=== PATIENT | male | born 1970 | race Caucasian/White ===

== ENCOUNTER 2018-03-25 23:37 | Observation (INO) | payer MEDICARE ==
[2018-03-26 00:05] LABS: #Basophils 0.1 thou/uL (0.0-0.2); #Eosinphils 0.2 thou/uL (0.0-0.7); #Lymphocytes 2.4 thou/uL (1.20-3.40); #Monocytes 0.5 thou/uL (0.11-0.59); #Neutrophils 4.9 thou/uL (1.40-6.50); %Basophils 0.7 % (0.0-1.0); %Eosinophils 2.9 % (0.0-10.0); %Lymphocytes 29.4 % (21.0-51.0); %Monocytes 6.6 % (0.0-10.0); %Neutrophils 60.5 % (42.0-75.0); Hemoglobin 14.2 g/dL (14.0-18.0); Mean Corpuscular Hemoglobin 28.3 pg (27.0-31.0); Mean Platelet Volume 7.2 fL (7.4-10.4); Platelet Count 286 thou/uL (130-400); RBC Distribution Width 12.6 % (11.5-14.5); Red Blood Cell (RBC) Count 5.03 mill/uL (4.70-6.10)
[2018-03-26 00:27] LABS: ALT (SGPT) 45 U/L (8-55); AST (SGOT) 24 U/L (5-34); Albumin 4.2 g/dL (3.5-5.0); Alkaline Phosphatase 100 U/L (40-150); Anion Gap 15 mmol/L (10-20); BUN (Urea Nitrogen) 18 mg/dL (8.9-20.6); Bilirubin, Total 0.4 mg/dL (0.2-1.2); Calc. Creatinine Clearance 0 mL/min (70-130); Calcium 9.8 mg/dL (7.8-10.44); Carbon Dioxide 26 mmol/L (22-29); Chloride 95 mmol/L (98-107); Estimated GFR-MDRD 56; Globulin 3.8 g/dL (2.4-3.5); Glucose 390 mg/dL (70-105); Potassium 3.9 mmol/L (3.5-5.1); Sodium 132 mmol/L (136-145)
[2018-03-26 00:31] LABS: CKMB 0.7 ng/mL (0-6.6); Troponin I Less than 0.010 ng/mL (< 0.028)
[2018-03-26 00:41] LABS: Magnesium 2.1 mg/dL (1.6-2.6)
[2018-03-26 00:57] LABS: INR-International Normal Ratio 0.9; Prothrombin Time 11.9 SEC (12.0-14.7)
[2018-03-26] MEDS ORDERED: Morphine 4 MG/ML VIAL ONE ×2 (01:34→03:03)
[2018-03-26 02:45] LABS: Bilirubin Negative (Negative); Blood, Urine Negative (Negative); Clarity CLEAR (Clear); Glucose, Urine (Dipstick) >=1000 mg/dL (Negative); Leukocyte Negative (Negative); Nitrite Negative (Negative); Protein, Urine (Dipstick) Negative (Neg-Trace); Specific Gravity, Urine 1.039 (1.002-1.036); Urobilinogen 0.2 mg/dL (0.2-1.0); pH, Urine 5.5 (5.0-9.0)
[2018-03-26 03:55] LABS: Troponin I Less than 0.010 ng/mL (< 0.028)
[2018-03-26] MEDS ORDERED: hydrALAZINE 20 MG/ML VIAL SLOW IVP PRN (05:06)
[2018-03-26 05:08] VITALS: BMI 45.8
[2018-03-26] MEDS ORDERED: Nitroglycerin 0.4 MG TAB (25 Tab Bottle) ONE (05:42)
[2018-03-26 06:41] LABS: Troponin I Less than 0.010 ng/mL (< 0.028)
--- NOTE | 2018-03-26 08:49 | RAD ---
AP VIEW OF THE CHEST: INDICATION: Shortness of breath and chest pain. IMPRESSION: No acute abnormality. Comments: Portions of the right apex are excluded. Heart size is within normal limits. No confluent airspace opacities are apparent. No pleural effusion is noted. No acute osseous abnormality is evident. POS: [facility]
[2018-03-26] MEDS ORDERED: Dextrose 5% in Water 1,000 ML IV PRN (08:54)
[2018-03-26] MEDS ORDERED: Dextrose 50% Abboject 50 ML SYRINGE SLOW IVP PRN (08:54)
[2018-03-26] MEDS ORDERED: Alogliptin 25 MG TAB PO SCH (09:00)
[2018-03-26] MEDS ORDERED: Aspirin 325 MG TAB PO SCH (09:00)
[2018-03-26 09:31] LABS: Hemoglobin A1c 8.6 % (4.0-6.0)
--- NOTE | 2018-03-26 10:23 | HP ---
DATE OF ADMISSION: 03/26/2018 CHIEF COMPLAINT: Chest pain. HISTORY OF PRESENT ILLNESS: The patient is a 47-year-old male who is admitted to the [facility] with 4-day history of intermittent chest pain located in the retrosternal area radiating to the b ack and left shoulder associated with some shortness of breath, no nausea. He vomited twice. He had 2 watery bowel movements since yesterday. The pain started when he was walking his dog and it was v jovanna hot outside, so he came into the house and rested and the pain got better. He never had this kin d of problem before. The sharp pain was associated with some tightness in the chest. He got concern ed because of his family history of cardiovascular disease at early deaths and he came to the emergen cy room for further evaluation. He takes blood pressure medications and he is not happy with his [facility] physician, Dr. Sandhu who is giving him more medications for the blood pressure and the blood pre ssure each time he checks is elevated despite of taking all those medications. In the emergency room , decision was made about further evaluation of his chest pain and admission was recommended to the ospitalist physician. PAST MEDICAL HISTORY: Positive for: 1. Hypertension. 2. Hernia. PAST SURGICAL HISTORY: None. SOCIAL HISTORY: He denies any alcohol use, cigarette smoking and use any illicit drugs. MEDICATIONS: Chlorthalidone 25 mg once a day, isosorbide mononitrate 30 mg once a day, carvedilol 6. 25 mg once a day, losartan/hydrochlorothiazide 100/25 mg tablets 1 a day, tizanidine 4 mg tablets 1 a day. FAMILY HISTORY: His father at the age of 49 of [place] and mother at the age of 65 of cerebrovascula r accident. ALLERGIES: None. REVIEW OF SYSTEMS: Constitutional: Negative for fever and chills. Eyes: Negative for eye pain and eye discharge. 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 Cardiovascular: Positive for chest pain. Negative for palpitations. Respiratory: Positive for shortness of breath. Negativ e for cough. Gastrointestinal: Positive for some nausea, vomiting, and diarrhea. Genitourinary: N egative for hematuria and dysuria. Musculoskeletal: Positive for back pain, which is chronic. Skin : Negative for rash, erythema or cellulitis. Neurologic: Positive for headache. Negative for dizz iness. Hemolymphatic: Negative for easy bruising and clotting abnormalities. Psychiatric: Negativ e for homicidal or suicidal ideations. PHYSICAL EXAMINATION: GENERAL: The communication with him is done through the clinical application specialist since he is mute and deaf. He i s resting comfortably in bed. He is obese. His BMI is 45. Weight is 356. His height is 6 feet 2 i nches. VITAL SIGNS: Blood pressure is 167/93, temperature is 97.5, pulse is 71, respiratory rate is 16, O2 saturation is 98 on room air. HEENT: His head is atraumatic, normocephalic. Eyes are PERRLA. Sclerae nonicteric. Oral mucosa is moist. Conjunctivae pinkish. NECK: Supple, no lymphadenopathy, is obese. LUNGS: Clear. HEART: S1, S2, somewhat distant. Not accurate. No S3, no S4, no any murmur. ABDOMEN: Soft, mildly tender in the left flank area. No guarding, no masses. EXTREMITIES: No clubbing, cyanosis or edema. He has quite severe pain on palpation of his lumbar sp ine and the left hip area. The range of motion in the left hip is within normal limits. Pulses is s omewhat diminished on both tibialis posterior and dorsalis pedis arteries, similar bilaterally. NEUROLOGICAL: He follows my commands. He moves his all 4 extremities. There is not any motor or se nsory deficits. Cranial nerves are intact. LABORATORY DATA: Showed normal CBC, INR of 2.0, PT 11.9. Sodium of 132, potassium 3.9, chloride 95, CO2 26, BUN 18, creatinine 1.37, glucose 390. Rest of chemistry within normal limits. Urinalysis s howed specific gravity of 1.039 and more than 1000 of glucose. IMAGES: CTA of the chest, no dissection, nondiagnostic evaluation for pulmonary embolism due to mini mal opacification of the pulmonary arteries. CT of the abdomen, no acute findings. EKG showed maggie l sinus rhythm at 90 beats per minute, no ischemic changes, possible left atrial enlargement. IMPRESSION: 1. Chest pain, rule out acute coronary syndrome. 2. Nausea, vomiting, abdominal pain, and diarrhea, rule out acute gastroenteritis. 3. Uncontrolled diabetes mellitus. 4. Uncontrolled hypertension. 5. Morbid obesity. PLAN: Admission for observation. Condition is fair. Activity: Bed rest and bathroom privileges. IV normal saline 100 mL per hour. Stop his chlorthalidone, which could be contributing to his renal insufficiency, I think this is prerenal mostly since he is on 2 different diuretics until his blood p ressure is controlled. We will obtain a Cardiolite stress test without any treadmill since he has ba ck pain, which is chronic. We will start him on sitagliptin 100 mg once a day for his diabetes, due to sliding scale with Humalog, mild for now. We will switch his diet to 1800 calories ADA and he janelle l continue on the rest of his home medications and I am going to add calcium channel jordan, amlodip ine 5 mg once a day since his blood pressure is still not regulated. I will use p.r.n. nitro as need ed and tramadol 100 mg q.4 hours p.r.n. for the back pain. He will receive 5000 units of heparin sub cutaneously every 8 hours for deep venous thrombosis prophylaxis and he will have sequential compress ion devices for deep venous thrombosis prophylaxis too.
[2018-03-26] MEDS: traMADol HCl 50 MG TAB PO PRN (10:35)
[2018-03-26] MEDS: tiZANidine HCl 4 MG TAB PO SCH (10:37)
[2018-03-26] MEDS: Losartan/Hydrochlorothiazide 100 mg/25 mg Tablet PO SCH (10:37)
[2018-03-26] MEDS: Amlodipine 5 MG TAB PO SCH (10:37)
[2018-03-26] MEDS: Carvedilol 6.25 MG TAB PO SCH (10:41)
[2018-03-26] MEDS: Heparin 5,000 UNITS/ML VIAL SC SCH ×3 (10:42→20:59)
[2018-03-26] MEDS: Sodium Chloride 0.9% 1,000 ML IV SCH (10:44)
[2018-03-26] MEDS ORDERED: ISOVUE-370 76%-LOCM 1 ML ONE (14:54)
--- NOTE | 2018-03-26 16:10 | CT ---
PRELIMINARY REPORT/[facility]/EMERGENTY AFTER-HOURS PROCEDURE CT Angiography Chest With Intravenous Contrast CLINICAL HISTORY: 47 years old, male; Pain; Chest pain; Abdominal pain; Generalized; Patient HX: History provided by nona espitia, history obtained with the assistance of a monotype operator, sign language, m47 presents to ed via tr anslator service C/O SOB and cp that has been intermittent the past x4 days, and was worsened today while walking his dog. Pt describes the cp as tightening sensation that radiated to his l. Shou lder and back. Pmhx of hypertension and takes 6 different meds for it. Pt also reports having a [place], a bdominal pain, and vomiting. Denies pain with bm. Fm hx of stroke in mother, and heart attack in formerly [facility], [facility], both at a young age. TECHNIQUE: Axial computed tomographic angiography images of the chest with intravenous contrast using pulmonary embolism protocol. MIP reconstructed images were created and reviewed. Coronal and sagittal reformatted images were created and reviewed. COMPARISON: No relevant prior studies available. FINDINGS: Pulmonary arteries: Nondiagnostic evaluation for pulmonary embolism due to minimal opacification of t he pulmonary arteries. Aorta: Unremarkable. Lungs: No consolidation. Pleural space: No significant effusion. No pneumothorax. Heart: Unremarkable. Bones/joints: Mild multilevel degenerative changes. No acute fracture. No dislocation. Soft tissues: Unremarkable. Lymph nodes: No enlarged lymph nodes. IMPRESSION: 1. No aortic dissection. 2. Nondiagnostic evaluation for pulmonary embolism due to minimal opacification of the pulmonary arteries. CT Angiography Abdomen With Intravenous Contrast TECHNIQUE: Axial computed tomographic angiography images of the abdomen with intravenous contrast. MIP reconstructed images were created and reviewed. Coronal and sagittal reformatted images were created and reviewed. COMPARISON: No relevant prior studies available. FINDINGS: Aorta: No acute findings. No abdominal aortic aneurysm. No dissection. Celiac trunk and mesenteric arteries: No acute findings. No occlusion or significant stenosis. Renal arteries: No acute findings. No occlusion or significant stenosis. Lung bases: Unremarkable. No mass. No consolidation. Liver: Unremarkable. No mass. Gallbladder and bile ducts: Unremarkable. No calcified stones. No ductal dilation. Pancreas: Unremarkable. No ductal dilation. No mass. Spleen: Unremarkable. No splenomegaly. Adrenals: Unremarkable. No mass. Kidneys and ureters: Unremarkable. No hydronephrosis. No solid mass. Stomach and bowel: Unremarkable. No obstruction. Intraperitoneal space: Unremarkable. No significant fluid collection. No free air. Bones/joints: No acute fracture. No dislocation. Soft tissues: Unremarkable. No mass. Lymph nodes: Unremarkable. No enlarged lymph nodes. IMPRESSION: No acute findings. Thank you for allowing us to participate in the care of your patient. Dictated and Authenticated by: Bran Villalta MD 03/26/2018 2:26 AM Central Time ([place] & [place]) FINAL REPORT I agree with the preliminary report provided. No acute aortic dissection, occlusion, or aneurysmal f ormation is evident. There is fatty infiltration of the liver. The spleen is enlarged measuring 15. 1 cm. There is a moderate amount of retained stool within the colon. POS: [facility]
[2018-03-26] MEDS ORDERED: glipiZIDE 5 MG TAB PO SCH (20:15)
[2018-03-26] MEDS: HumaLOG 300 UNITS/3 ML VIAL SC PRN (21:02)
[2018-03-27] MEDS: traMADol HCl 50 MG TAB PO PRN ×2 (00:28→13:16)
[2018-03-27] MEDS: Sodium Chloride 0.9% 1,000 ML IV SCH ×2 (04:01→14:50)
[2018-03-27 04:44] LABS: Anion Gap 16 mmol/L (10-20); BUN (Urea Nitrogen) 18 mg/dL (8.9-20.6); Calc. Creatinine Clearance 192 mL/min (70-130); Calcium 9.6 mg/dL (7.8-10.44); Carbon Dioxide 22 mmol/L (22-29); Chloride 96 mmol/L (98-107); Estimated GFR-MDRD 72; Glucose 272 mg/dL (70-105); Potassium 3.4 mmol/L (3.5-5.1); Sodium 131 mmol/L (136-145)
[2018-03-27] MEDS: glipiZIDE 5 MG TAB PO SCH ×2 (08:54→17:27)
[2018-03-27] MEDS: Amlodipine 5 MG TAB PO SCH (08:54)
[2018-03-27] MEDS: tiZANidine HCl 4 MG TAB PO SCH (08:55)
[2018-03-27] MEDS: Losartan/Hydrochlorothiazide 100 mg/25 mg Tablet PO SCH (08:55)
[2018-03-27] MEDS: Heparin 5,000 UNITS/ML VIAL SC SCH ×3 (08:56→20:58)
[2018-03-27] MEDS ORDERED: Alogliptin 25 MG TAB PO SCH (09:00)
[2018-03-27] MEDS: HumaLOG 300 UNITS/3 ML VIAL SC PRN ×2 (12:13→17:29)
[2018-03-27] MEDS: Carvedilol 6.25 MG TAB PO SCH (12:13)
--- NOTE | 2018-03-27 13:11 | NM ---
NUCLEAR MEDICINE CARDIAC STRESS TEST WITH EJECTION FRACTION: HISTORY: Chest pain. Hypertension. Diabetes. Coronary artery disease. COMPARISON: None. TECHNIQUE: Stress and rest was performed after the intravenous administration of 29.5 and 27 mCi technetium-99m sestamibi intravenously, respectively. FINDINGS: No evidence of ischemia or infarct. Normal wall motion. Ejection fraction calculated at 59%. IMPRESSION: Normal nuclear medicine cardiac stress test and ejection fraction. POS: [facility]
--- NOTE | 2018-03-27 14:25 | DIS ---
DATE OF ADMISSION: 03/26/2018 DATE OF DISCHARGE: 03/27/2018 PRIMARY CARE PROVIDER: Sanjuana Zacarias M.D. DISCHARGE DIAGNOSES: Noncardiac chest pain; diabetes mellitus, type 2; morbid obesity; and hypertens ion. DISCHARGE MEDICATIONS: New: Metformin 500 mg p.o. t.i.d., chlorthalidone 25 mg a day, losartan HCT one a day, Coreg 6.25 mg daily, Imdur 30 mg daily, tizanidine one tablet daily. ALLERGIES: No known drug allergies. DIET: Diabetic. CODE STATUS: FULL. PENDING AT THE TIME OF DISCHARGE: Nothing. HOSPITAL COURSE: Patient was admitted to [facility] to [facility] with chest pain. 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 Chest pain was retrosternal, radiatin g to the back and left shoulder. His CT of the chest, no dissection. CT of the abdomen, no acute fi ndings. EKG normal sinus rhythm, no ischemic change. Cardiac enzymes normal. Nuclear medicine card iac stress test was done, which is negative. Patient today is asymptomatic. His blood sugars are 20 0-300, blood pressure is 118/68, pulse 66. His hemoglobin was 8.6. He has apparent new onset of elinor betes mellitus. He is being discharged on metformin 500 three times a day. He is being continued on his home blood pressure medicines. He is to follow up with PCP in 1 week. A hand sign paraprofessional interpreter and the nurses with him now helping with obtaining his followup as he desires with a new doctor. He states his doctor is Dr. Sandhu; however, the admitting physician put Dr. Sanjuana Zacarias on there. In any rate, he is being assisted with a list of physicians in our system to follow up with. CONSULTATIONS: None. PROCEDURES: None.
--- NOTE | 2018-03-27 17:40 | PDOC.PN ---
- Subjective Encounter Start Date: 03/27/18 Encounter Start Time: 17:39 Subjective: no chest pain - Objective Resuscitation Status: Resuscitation Status FULL:Full Resuscitation MAR Reviewed: Yes Vital Signs & Weight: Vital Signs (12 hours) Temp Pulse Resp BP BP Pulse Ox 03/27/18 15:58 97.9 F 67 16 111/55 L 98 03/27/18 12:13 118/68 03/27/18 11:23 97.9 F 66 18 118/68 99 03/27/18 08:55 98.3 F 78 20 03/27/18 08:54 78 165/94 H 03/27/18 07:30 98.3 F 78 20 165/94 H 98 Weight Weight 356 lb 12.8 oz I&O: 03/26/18 03/27/18 03/28/18 06:59 06:59 06:59 Intake Total 2245 340 Balance 2245 340 Result Diagrams: 03/25/18 23:58 03/27/18 04:09 Additional Labs: Accuchecks 03/27/18 03/27/18 03/26/18 16:35 11:35 21:03 POC Glucose 273 H 282 H 288 H Phys Exam - Physical Examination Neck: no JVD Respiratory: clear to auscultation bilateral Cardiovascular: RRR, no significant murmur Gastrointestinal: soft, non-tender Musculoskeletal: no edema Dx/Plan (1) Chest pain Code(s): R07.9 - CHEST PAIN, UNSPECIFIED Status: Acute Qualifiers: Ischemic chest pain type: unspecified angina pectoris type (2) DM type 2 (diabetes mellitus, type 2) Status: Acute Qualifiers: Diabetes mellitus longwall machine operator helper insulin use: without longwall machine operator helper use Diabetes mellitus complication status: without complication Qualified Code(s): E11.9 - Type 2 diabetes mellitus without complications (3) HTN (hypertension) Code(s): I10 - ESSENTIAL (PRIMARY) HYPERTENSION Status: Chronic Qualifiers: Hypertension type: essential hypertension Qualified Code(s): I10 - Essential (primary) hypertension - Plan stress test normal- discussed with patient(sign interpretter -: Hg A1c 8.6- cont accu/ss/ start metformin * .
[2018-03-27] MEDS ORDERED: Regadenoson 0.4 MG/5 ML SYRINGE ONE (19:24)
[2018-03-27] MEDS: clonazePAM 1 MG TAB PO SCH (20:58)
[2018-03-27] MEDS: metFORMIN 500 MG TAB PO SCH (20:58)
[2018-03-28] MEDS: traMADol HCl 50 MG TAB PO PRN (02:49)
[2018-03-28 07:41] VITALS: TEMP 97.7
[2018-03-28] MEDS: glipiZIDE 5 MG TAB PO SCH (09:06)
[2018-03-28] MEDS: Losartan/Hydrochlorothiazide 100 mg/25 mg Tablet PO SCH (09:06)
[2018-03-28] MEDS: Amlodipine 5 MG TAB PO SCH (09:07)
[2018-03-28] MEDS: clonazePAM 1 MG TAB PO SCH (09:07)
[2018-03-28] MEDS: Carvedilol 6.25 MG TAB PO SCH (09:07)
[2018-03-28] MEDS: tiZANidine HCl 4 MG TAB PO SCH (09:07)
[2018-03-28] MEDS: metFORMIN 500 MG TAB PO SCH (09:07)
[2018-03-28] MEDS: Heparin 5,000 UNITS/ML VIAL SC SCH (09:08)
[2018-03-28 12:24] VITALS: BP 104/63
--- NOTE | 2018-03-28 13:58 | ADD-DIS ---
ADDENDUM: DATE OF ADMISSION: 03/26/2018 DATE OF DISCHARGE: 03/28/2018 DISCHARGE DISPOSITION: Discharged home. FINAL DIAGNOSES: Chest pain, noncardiac; type 2 diabetes; hypertension; morbid obesity; deaf and mut e. DISCHARGE MEDICATIONS: Tramadol 100 mg p.o. q.4 hours #7, metformin 500 mg p.o. t.i.d., Imdur 30 mg a day, Coreg 6.25 mg a day, losartan and hydrochlorothiazide one a day, he has been on tizanidine 1 t ablet daily, which was not refilled, clonazepam 1 tablet t.i.d. which was not refilled, chlorthalidon e 25 mg which was not refilled. His hospital stay was prolonged over difficulties with his being kaela f and mute and adequate interpreter translator. He was treated overnight with his usual medicines and the addit ion of metformin. His blood sugars have come down to currently, the last two were 210 and 198. He i s being discharged, hospital has arranged followup with an interpreter translator at a hospital associated [facility]. He is on a diabetic diet. He is being educated by staff on diabetes management, currently boom nair is seeing him. All the other comments made in the previous discharge summary apply.
--- NOTE | 2018-04-01 12:46 | EKG ---
Test Reason : Blood Pressure : / mmHG Vent. Rate : 090 BPM Atrial Rate : 090 BPM P-R Int : 162 ms QRS Dur : 082 ms QT Int : 344 ms P-R-T Axes : 053 027 032 degrees QTc Int : 420 ms Normal sinus rhythm Possible Left atrial enlargement Borderline ECG Confirmed by DEXTER ROMEO ([id number]), assistant film editor LORNA GARCIA ([id number]) on 04/01/2018 12:45:57 PM Referred By: Confirmed By:DEXTER ROMEO
== END 2018-03-28 12:33 | disposition home or self-care (01) ==
LOC: ERS 23:37 → 2SW 03-26 02:31
PROVIDERS: ADMIT Hospitalist; ATTEND Hospitalist
DX: R07.89 Other chest pain (principal); E66.01 Morbid (severe) obesity due to excess calories; H91.3 Deaf nonspeaking, not elsewhere classified; I10 Essential (primary) hypertension; Z79.84 Long term (current) use of oral hypoglycemic drugs; Z79.899 Other long term (current) drug therapy
CPT/HCPCS: 71045; 71275; 78452; 80048; 80053; 81003; 82553; 82962 ×3; 83036; 83690; 83735; 84484 ×3; 85025; 85379; 85610; 85730; 86850; 86900; 86901; 93005; 93017; 96361 ×3; 96374; 96376; 99285; A9500; G0378 ×2; 36415; 36416; J1644; J2270; J2785

== ENCOUNTER 2018-09-11 15:01 | Emergency (ER) | payer MEDICARE ==
[~2018-09-11 15:01] MED LIST: Iopamidol 370 76% 50 ML VIAL FS ONE
[2018-09-11 15:44] LABS: #Eosinphils 0.2 thou/uL (0.0-0.7); #Lymphocytes 1.7 thou/uL (1.20-3.40); #Monocytes 0.6 thou/uL (0.11-0.59); #Neutrophils 4.9 thou/uL (1.40-6.50); %Basophils 0.3 % (0.0-1.0); %Eosinophils 2.2 % (0.0-10.0); %Lymphocytes 23.4 % (21.0-51.0); %Monocytes 7.4 % (0.0-10.0); %Neutrophils 66.7 % (42.0-75.0); Hemoglobin 11.9 g/dL (14.0-18.0); Mean Corpuscular HGB CONC 33.5 g/dL (32.0-36.0); Mean Corpuscular Hemoglobin 28.8 pg (27.0-31.0); Mean Corpuscular Volume 85.9 fL (78.0-98.0); Mean Platelet Volume 7.6 fL (7.4-10.4); Platelet Count 259 thou/uL (130-400); RBC Distribution Width 12.5 % (11.5-14.5); Red Blood Cell (RBC) Count 4.15 mill/uL (4.70-6.10); White Blood Cell (WBC) Count 7.4 thou/uL (4.8-10.8)
--- NOTE | 2018-09-11 16:02 | RAD ---
CHEST ONE VIEW: History: 47-year-old male with history of chest pain. Comparison: 03-26-18 FINDINGS: Heart size is within normal limits. There appear to be new diffuse interstitial changes bilaterally t hroughout both lungs raising concern for acute interstitial edema. No significant pleural effusion. N o confluent pneumonia. Heart size appears within normal limits. IMPRESSION: Evidence for fairly extensive bilateral new interstitial changes certainly concerning for acute inter stitial edema. POS: [facility]
[2018-09-11 16:07] LABS: ALT (SGPT) 29 U/L (8-55); AST (SGOT) 16 U/L (5-34); Albumin 3.6 g/dL (3.5-5.0); Alkaline Phosphatase 75 U/L (40-150); Anion Gap 12 mmol/L (10-20); BUN (Urea Nitrogen) 13 mg/dL (8.9-20.6); Bilirubin, Total 0.4 mg/dL (0.2-1.2); CK (CPK) 106 U/L (30-200); Calc. Creatinine Clearance 0 mL/min (70-130); Calcium 8.8 mg/dL (7.8-10.44); Carbon Dioxide 24 mmol/L (22-29); Chloride 106 mmol/L (98-107); Estimated GFR-MDRD 90; Glucose 138 mg/dL (70-105); Potassium 3.7 mmol/L (3.5-5.1); Protein, Total 6.6 g/dL (6.0-8.3); Sodium 138 mmol/L (136-145)
[2018-09-11 18:51] LABS: Troponin I Less than 0.010 ng/mL (< 0.028)
--- NOTE | 2018-09-11 19:20 | CT ---
CT PULMONARY ANGIOGRAM WITH IV CONTRAST AND 3D MIP RECONSTRUCTIONS: 09/11/2018 PROVIDED CLINICAL HISTORY: Shortness of breath. FINDINGS: There is no evidence for central or segmental pulmonary embolus. The heart, pericardium, and great v essels demonstrate an unremarkable CT appearance. There is an enlarged subcarinal lymph node, measuring about 2.1 cm. No additional thoracic lymph nod e enlargement is evident. There are mild bilateral pleural effusions. There is patchy ground glass opacity involving the depen dent portions of both lower lobes. There is no aura consolidation or nodularity. The airway appear s patent and of normal caliber. There is prominence of the pulmonary interstitium at the lung bases. The visualized portions of the upper abdomen demonstrate no acute abnormality. The osseous structures demonstrate no concerning lytic or blastic lesions. IMPRESSION: 1. No evidence for central or segmental pulmonary embolus. 2. Mild bilateral pleural effusions. 3. Enlarged subcarinal lymph node, reactive versus neoplastic. 4. Ground glass opacities and interstitial thickening involving both lower lobes could reflect infec tious pneumonitis. Congestive failure could also produce this appearance. POS: [facility]
[2018-09-11] MEDS ORDERED: Furosemide 40 MG/4 ML VIAL ONE (19:44)
== END 2018-09-11 19:52 | disposition home or self-care (01) ==
LOC: ERS 15:01
DX: I11.0 Hypertensive heart disease with heart failure (principal); I50.9 Heart failure, unspecified; F41.9 Anxiety disorder, unspecified; F32.9 Major depressive disorder, single episode, unspecified
CPT/HCPCS: 36415; 71045; 71275; 80053; 82550; 83880; 84484; 85025; 85379; 93005; 94760; 96374; J1940

== ENCOUNTER 2018-11-10 16:36 | Emergency (ER) | payer MEDICARE ==
--- NOTE | 2018-11-10 17:57 | RAD ---
PA AND LATERAL OF THE CHEST: 11/10/18 INDICATION: Cough and cold symptoms. COMPARISON: Prior exam dated 09/12/08. FINDINGS: There is interstitial prominence seen throughout both lungs but most prominent within the left lung, particularly the left lung base. No consolidation is evident. Heart size is normal. No acute osseous abnormality is evident. IMPRESSION: Interstitial opacity present within both lungs, particularly the left lung, may reflect sequela of a viral infection or other atypical. No consolidation is evident to suggest a bacterial pneumonia. No p leural effusion is noted. POS: [facility]
== END 2018-11-10 18:00 | disposition home or self-care (01) ==
LOC: ERS 16:36
DX: J20.9 Acute bronchitis, unspecified (principal); I10 Essential (primary) hypertension; F41.9 Anxiety disorder, unspecified; F32.9 Major depressive disorder, single episode, unspecified
CPT/HCPCS: 71046

== ENCOUNTER 2018-11-27 23:44 | Emergency (ER) | payer MEDICARE, BC ==
[2018-11-28] MEDS ORDERED: HYDROcodone/Acetaminophen 10/325 mg Tablet ONE (00:16)
--- NOTE | 2018-11-28 06:59 | CT ---
CT HEAD NONCONTRAST: INDICATIONS: Headache. FINDINGS: There is no ventriculomegaly, mass effect, midline shift, or acute intracranial hemorrhage. IMPRESSION: No acute intracranial abnormalities. POS: [facility]
== END 2018-11-28 00:37 | disposition home or self-care (01) ==
LOC: SCSER 23:44
DX: K02.9 Dental caries, unspecified (principal); K00.7 Teething syndrome; I10 Essential (primary) hypertension; F41.9 Anxiety disorder, unspecified; F32.9 Major depressive disorder, single episode, unspecified; Z79.899 Other long term (current) drug therapy
CPT/HCPCS: 70450

== ENCOUNTER 2019-05-25 19:19 | Emergency (ER) | payer BC, MEDICARE ==
[2019-05-25] MEDS ORDERED: Ketorolac Tromethamine 30 MG/ML VIAL ONE (19:35)
[2019-05-25] MEDS ORDERED: HYDROcodone/Acetaminophen 7.5/325 mg Tablet ONE (20:54)
[2019-05-25] MEDS ORDERED: Neomycin/Polymyxin/HC Otic Solution 10 ML BOT L EAR SCH (21:00)
== END 2019-05-25 21:38 | disposition home or self-care (01) ==
LOC: ERS 19:19
DX: H60.92 Unspecified otitis externa, left ear (principal); I10 Essential (primary) hypertension; F41.9 Anxiety disorder, unspecified; F32.9 Major depressive disorder, single episode, unspecified
CPT/HCPCS: 96372; 99282; J1885

== ENCOUNTER 2019-07-23 00:21 | Emergency (ER) | payer MEDICARE ==
[2019-07-23] MEDS ORDERED: HYDROcodone/Acetaminophen 10/325 mg Tablet ONE (01:40)
== END 2019-07-23 01:50 | disposition home or self-care (01) ==
LOC: ERS 00:21
DX: K03.81 Cracked tooth (principal); K02.9 Dental caries, unspecified; I10 Essential (primary) hypertension; F41.9 Anxiety disorder, unspecified; F32.9 Major depressive disorder, single episode, unspecified; Z79.899 Other long term (current) drug therapy

== ENCOUNTER 2019-07-24 12:03 | Inpatient (IN) | payer MEDICARE ==
[2019-07-24] MEDS ORDERED: Morphine 4 MG/ML VIAL ONE ×2 (13:30→15:28)
[2019-07-24] MEDS ORDERED: Clindamycin/D5W 900 mg/50 ml Premix Bag ONE (13:30)
[2019-07-24] MEDS ORDERED: Iopamidol-370 76% 500 ML 1 ML ONE (13:47)
[2019-07-24] MEDS ORDERED: Ondansetron PF 4 MG/2 ML Vial ONE (13:59)
--- NOTE | 2019-07-24 14:09 | CT ---
CT maxillofacial with contrast: DATE: 48-year-old male with left facial pain and swelling. FINDINGS: There is poor dentition, with numerous defects in the crowns of multiple upper and lower teeth, and n umerous osseous periapical lucencies around the roots. There is soft tissue thickening and fat stranding representing edema in the left buccal space, with t he fat stranding extending into the subcutaneous fat of the left adjacent cheek. There is no sialolith. Submandibular and parotid glands demonstrate no major pathology. Multiple mildly enlarged bilateral level 1B and level 2 reactive cervical lymph nodes. No discrete abscess. No air-fluid levels in the paranasal sinuses. Multiple mucus retention cysts in the bilateral maxillary sinuses. E thmoid air cells and left sphenoid air cell, and bilateral frontal sinuses, are clear. Minimal mucosal thickening in right sphenoid air cell. Bilateral middle ear cavities and mastoid antra, and r ight mastoid air cells, are clear. Small left mastoid effusion. Orbits are clear. No destructive osseous lesion. No fracture. IMPRESSION: 1. Edema in the left buccal space spilling out into the adjacent left superficial fat is evidence for left-sided acute odontogenic disease. 2. Extensive, diffuse odontogenic disease.
[2019-07-24 15:17] LABS: #Basophils 0.1 thou/uL (0.0-0.2); #Eosinphils 0.2 thou/uL (0.0-0.7); #Lymphocytes 1.8 thou/uL (1.20-3.40); #Neutrophils 6.1 thou/uL (1.40-6.50); %Basophils 0.6 % (0.0-1.0); %Eosinophils 1.8 % (0.0-10.0); %Monocytes 10.6 % (0.0-10.0); %Neutrophils 67.2 % (42.0-75.0); Hemoglobin 13.7 g/dL (14.0-18.0); Mean Corpuscular HGB CONC 32.8 g/dL (32.0-36.0); Mean Corpuscular Hemoglobin 27.9 pg (27.0-31.0); Mean Corpuscular Volume 85.1 fL (78.0-98.0); Mean Platelet Volume 7.5 fL (7.4-10.4); Platelet Count 256 thou/uL (130-400); RBC Distribution Width 12.5 % (11.5-14.5); Red Blood Cell (RBC) Count 4.91 mill/uL (4.70-6.10)
[2019-07-24 15:35] LABS: ALT (SGPT) 34 U/L (8-55); AST (SGOT) 22 U/L (5-34); Alkaline Phosphatase 93 U/L (40-110); Anion Gap 10 mmol/L (10-20); BUN (Urea Nitrogen) 14 mg/dL (8.9-20.6); Bilirubin, Total 0.8 mg/dL (0.2-1.2); CRP (Inflammatory) 4.75 mg/dL (= or < 0.5); Calc. Creatinine Clearance 0 mL/min (70-130); Calcium 9.2 mg/dL (7.8-10.44); Carbon Dioxide 28 mmol/L (22-29); Chloride 100 mmol/L (98-107); Estimated GFR-MDRD 71; Globulin 3.4 g/dL (2.4-3.5); Glucose 178 mg/dL (70-105); Protein, Total 7.4 g/dL (6.0-8.3); Sodium 134 mmol/L (136-145)
[2019-07-24] MEDS ORDERED: Fentanyl 100 MCG/2 ML VIAL ONE (16:55)
[2019-07-24] MEDS ORDERED: Labetalol HCl 100 MG/20 ML VIAL ONE (18:45)
[2019-07-24] MEDS ORDERED: Ondansetron ODT 4 MG TAB PO PRN (18:48)
[2019-07-24] MEDS ORDERED: Acetaminophen 325 MG TAB PO PRN (18:48)
[2019-07-24] MEDS ORDERED: Ketorolac Tromethamine 30 MG/ML VIAL IVP PRN (18:58)
[2019-07-24] MEDS ORDERED: hydrALAZINE 20 MG/ML VIAL SLOW IVP PRN (19:26)
[2019-07-24] MEDS: Morphine 4 MG/ML VIAL SLOW IVP PRN (20:56)
[2019-07-24] MEDS: Sodium Chloride 0.9% 1,000 ML IV SCH (21:00)
[2019-07-24] MEDS ORDERED: Carvedilol 6.25 MG TAB PO SCH (21:15)
[2019-07-24] MEDS: Senokot S 8.6-50 MG TAB PO PRN (21:17)
[2019-07-24] MEDS: hydrOXYzine 25 MG TAB PO SCH (21:17)
[2019-07-24] MEDS: HYDROcodone/Acetaminophen 10/325 mg Tablet PO PRN (23:40)
[2019-07-24] MEDS: Piperacillin/Tazobactam 3.375 GM in Sodium Chloride 0.9% 100 ML IVPB SCH (23:41)
[2019-07-24 23:51] VITALS: BMI 44.6
[2019-07-25] MEDS: Morphine 4 MG/ML VIAL SLOW IVP PRN ×2 (02:13→09:01)
--- NOTE | 2019-07-25 02:47 | HP ---
CHIEF COMPLAINT: Left facial pain. HISTORY OF PRESENT ILLNESS: This patient is a 48-year-old male who presented via the emergency department. The patient has had some history of dental issues. He is deaf and does not speak. His reads lips and helps interpret and gives the history. The patient had presented to this emergency department yesterday with dental pain and was given a prescription for Augmentin and Peridex. However, the patient has continued to have worsening pain and inflammation extending up to the left paranasal maxillary area and up around the eye. He has had some fever. He only reports that he has had pain associated with that tooth for about 5 days. He has had some prior ER visits with some dental-related pain. States they have some difficulty affording proper dental care. PAST MEDICAL HISTORY: Notable for hypertension and prior hernia. PAST SURGICAL HISTORY: None other than it sounds like he might have had an epidural injection at some point. FAMILY HISTORY: Father at 48 of "massive heart attack." Mother at 65 of complications of a stroke. SOCIAL HISTORY: The patient is a nonsmoker, nondrinker, and nondrug user. Full code. is his surrogate decision maker. CURRENT MEDICATIONS: Duloxetine 60 mg p.o. daily, losartan and hydrochlorothiazide 100/25 one p.o. daily, hydroxyzine 25 mg t.i.d., amlodipine 10 mg daily, carvedilol 6.25 mg one p.o. b.i.d., Augmentin 875 one p.o. b.i.d., Peridex mouthwash, Tylenol No. 3 p.r.n., ibuprofen 800 mg q.8 hours p.r.n. ALLERGIES: NONE. PHYSICAL EXAMINATION: VITAL SIGNS: Initial BP was 144/85, pulse 97, respirations 20, temperature is 99.3, O2 sats 97%. Most recent BPs have been much more elevated at 214/132, although it appears that they are trying to take the blood pressure with a forearm cuff and I am not sure that is entirely reliable at the moment. GENERAL APPEARANCE: Obese, age-appropriate male who is deaf. He makes good eye contact. Appears to be uncomfortable. HEENT: PERRL. He has some teeth with some caries in the left upper molar, which is essentially worn down to the gumline with some discoloration, but no acute evidence of inflammation or pus. He has erythema extending to the left maxilla area lateral to the nose with some puffy edema around the eye. This area is tender to palpation. NECK: Supple and symmetric without lymphadenopathy. HEART: Regular rate and rhythm. No murmurs, gallops, or rubs. LUNGS: Clear to auscultation bilaterally with good chest wall expansion and air exchange. ABDOMEN: Soft, nontender, and nondistended. Positive bowel sounds. No masses. No organomegaly. EXTREMITIES: No cyanosis, clubbing, or edema. LABORATORY DATA: White count 9.0, hemoglobin 13.7, platelets are 256. Sodium 134, potassium 4.0, chloride 100, CO2 of 28, BUN 14, creatinine is 1.1, glucose 178, AST is 22, ALT is 34, CRP is 4.75, albumin 4.0. CT of the facial bones showed edema to the left buccal space spilling out to the adjacent left superficial fat, evidence for left-sided acute odontogenic disease and extensive diffuse odontogenic disease. IMPRESSION AND PLAN: Left facial cellulitis, likely due to some infected tooth or abscessed tooth, which does not necessarily show up on the CT. At this point, the patient has required several rounds of IV medications to control his pain, including fentanyl 100 mcg IV push, morphine 4 mg IV push x2. He has also received IV labetalol, clindamycin, and Zofran. He will be admitted to the hospital for IV antibiotics and pain control. We will continue with his usual home blood pressure medications for his hypertension. Suspect we may need to get the cellulitis under control and arrange for him to have fairly immediate followup for an aggressive dental evaluation. In the meantime, we will cover him with the Zosyn. We will also continue to monitor his blood sugars. Job ID: [id number]
[2019-07-25] MEDS ORDERED: metroNIDAZOLE 500 MG in Premix Bag 1 BAG IVPB SCH (04:00)
[2019-07-25] MEDS: HYDROcodone/Acetaminophen 10/325 mg Tablet PO PRN ×2 (05:07→21:02)
[2019-07-25] MEDS: Piperacillin/Tazobactam 3.375 GM in Sodium Chloride 0.9% 100 ML IVPB SCH ×4 (05:30→23:57)
[2019-07-25] MEDS: hydrOXYzine 25 MG TAB PO SCH ×3 (09:04→20:59)
[2019-07-25] MEDS: Losartan/Hydrochlorothiazide 100 mg/25 mg Tablet PO SCH (09:04)
[2019-07-25] MEDS: DULoxetine 60 MG CAP PO SCH (09:04)
[2019-07-25] MEDS: Amlodipine 10 MG TAB PO SCH (09:04)
[2019-07-25] MEDS: Carvedilol 6.25 MG TAB PO SCH ×2 (09:04→17:05)
[2019-07-25] MEDS: Enoxaparin Sodium 40 MG/0.4 ML SYRINGE SC SCH (09:05)
[2019-07-25] MEDS: Senokot S 8.6-50 MG TAB PO PRN (09:05)
[2019-07-25] MEDS ORDERED: Morphine 4 MG/ML VIAL SLOW IVP SCH (11:15)
--- NOTE | 2019-07-25 11:16 | PDOC.FM ---
- Subjective Subjective: Pain still present. No fevers. Difficult to eat. - Objective Vital Signs & Weight: Vital Signs (12 hours) Temp Pulse Resp BP BP BP Pulse Ox 07/25/19 09:04 62 162/94 H 07/25/19 09:01 96 07/25/19 07:40 98.2 F 62 16 162/94 H 96 07/25/19 04:32 98.5 F 72 16 170/96 H 98 07/25/19 02:18 137/83 07/25/19 00:04 85 180/107 H 07/25/19 00:00 99.0 F 83 20 180/107 H 95 Weight Weight 157.567 kg Result Diagrams: 07/24/19 15:05 07/24/19 15:05 Phys Exam - Physical Examination distress on pain HEENT: PERRLA EOMI intact, no pain wtih movement extensive odontogenic disease, Neck: full ROM Respiratory: no wheezing, clear to auscultation bilateral Cardiovascular: RRR, no significant murmur Gastrointestinal: soft, non-tender Neurological: non-focal, moves all 4 limbs Deviation from normal: left facial cellulitis Dx/Plan (1) Cellulitis Code(s): L03.90 - CELLULITIS, UNSPECIFIED Status: Acute (2) DM type 2 (diabetes mellitus, type 2) Status: Acute Qualifiers: Diabetes mellitus terminal operations manager insulin use: without terminal operations manager use Diabetes mellitus complication status: without complication Qualified Code(s): E11.9 - Type 2 diabetes mellitus without complications (3) HTN (hypertension) Code(s): I10 - ESSENTIAL (PRIMARY) HYPERTENSION Status: Chronic Qualifiers: Hypertension type: essential hypertension Qualified Code(s): I10 - Essential (primary) hypertension - Plan Plan: 1. Cellulitis of left face from odontogenic infction- Switch abx to clindamycin for toxin bindings effects and anaerobic coverage. Continue zosyn. Inc morphine for better pain control with morphine for breakthrough. Will discuss with [facility]. 2. HTN-elevated likely from pain. Continue home meds but improve pain control 3. DM2- check a1c Addendum - Attending - Attending Attestation Date/Time: 07/25/19 7113 I personally evaluated the patient and discussed the management with Dr. Ghotra I agree with the History, Examination, Assessment and Plan documented above with any addition or exceptions noted below. Dr Ghotra was able to discuss with [facility] post rounds and dental abscess noted on review of CT feel adequate coverage with Cleocin and zosyn no sign intracerebral involvement can transition to po cleocin and augmentin will address pain and plan to see [facility] as outpt for definitive treatment.
[2019-07-25] MEDS: Clindamycin/D5W 900 MG in Premix Bag 1 BAG IVPB SCH ×2 (12:15→20:59)
[2019-07-25] MEDS: Sodium Chloride 0.9% 1,000 ML IV SCH ×2 (12:17→23:56)
[2019-07-25 15:12] LABS: Hemoglobin A1c 7.2 % (4.0-6.0)
[2019-07-25] MEDS ORDERED: Dextrose 50% Abboject 50 ML SYRINGE SLOW IVP PRN (15:38)
[2019-07-25] MEDS ORDERED: Dextrose 5% in Water 1,000 ML IV PRN (15:38)
[2019-07-25] MEDS: HumaLOG 300 UNITS/3 ML VIAL SC PRN (17:08)
[2019-07-25] MEDS: Morphine 2 MG/ML SYRINGE SLOW IVP PRN (17:44)
[2019-07-25] MEDS ORDERED: FLU VACC QS2019-20(6MOS UP)/PF 60 MCG/0.5 ML SYRINGE IM ONE (21:00)
[2019-07-25] MEDS ORDERED: Clindamycin/D5W 900 mg/50 ml Premix Bag ONE (21:08)
[2019-07-26] MEDS: Clindamycin/D5W 900 MG in Premix Bag 1 BAG IVPB SCH ×3 (03:24→20:06)
[2019-07-26] MEDS: Morphine 2 MG/ML SYRINGE SLOW IVP PRN (05:28)
[2019-07-26] MEDS: Piperacillin/Tazobactam 3.375 GM in Sodium Chloride 0.9% 100 ML IVPB SCH ×4 (05:32→23:18)
[2019-07-26] MEDS: DULoxetine 60 MG CAP PO SCH (07:43)
[2019-07-26] MEDS: Losartan/Hydrochlorothiazide 100 mg/25 mg Tablet PO SCH (07:43)
[2019-07-26] MEDS: Amlodipine 10 MG TAB PO SCH (07:52)
[2019-07-26] MEDS: Enoxaparin Sodium 40 MG/0.4 ML SYRINGE SC SCH (07:52)
[2019-07-26] MEDS: Carvedilol 6.25 MG TAB PO SCH ×2 (07:53→16:44)
[2019-07-26] MEDS: hydrOXYzine 25 MG TAB PO SCH ×3 (07:53→20:06)
--- NOTE | 2019-07-26 09:22 | PDOC.FM ---
- Subjective Subjective: NAEO. Pain midlly improved. No fevers, able to tolerate soft foods. - Objective MAR Reviewed: Yes Vital Signs & Weight: Vital Signs (12 hours) Temp Pulse Resp BP BP BP Pulse Ox 07/26/19 07:53 160/96 H 07/26/19 07:52 98.3 F 66 16 160/96 H 160/96 H 94 L 07/26/19 04:00 98.4 F 67 20 184/94 H 96 07/25/19 23:47 98.3 F 69 20 120/65 94 L Weight Weight 157.567 kg I&O: 07/25/19 07/26/19 07/27/19 06:59 06:59 06:59 Intake Total 1999 Balance 1999 Result Diagrams: 07/24/19 15:05 07/24/19 15:05 Phys Exam - Physical Examination Constitutional: NAD HEENT: PERRLA, sclera anicteric extensive odontogenic disease, pain with touch EOMI Respiratory: no wheezing, clear to auscultation bilateral Cardiovascular: RRR, no significant murmur Neurological: non-focal, moves all 4 limbs Deviation from normal: facial cellulitis, improved Dx/Plan (1) Cellulitis Code(s): L03.90 - CELLULITIS, UNSPECIFIED Status: Acute (2) DM type 2 (diabetes mellitus, type 2) Status: Acute Qualifiers: Diabetes mellitus half-way insulin use: without local company intermodal truck driver use Diabetes mellitus complication status: without complication Qualified Code(s): E11.9 - Type 2 diabetes mellitus without complications (3) HTN (hypertension) Code(s): I10 - ESSENTIAL (PRIMARY) HYPERTENSION Status: Chronic Qualifiers: Hypertension type: essential hypertension Qualified Code(s): I10 - Essential (primary) hypertension - Plan Plan: 1. Cellulitis of left face from odontogenic infction- Stable, afebrile pending cultures. Clinically improved. No ocular involvement. Continue clindamycin & zosyn. Pain control. Was supposed to d/c to [facility] outpt tooth extraction procedure however no ride since in ER. Will discuss w/ case mgmt. 2. HTN-elevated likely from pain. Continue home meds but improve pain control 3. DM2-7.4. Start metformin & statin outpt. Sliding scale Addendum - Attending - Attending Attestation Date/Time: 07/26/19 1144 I personally evaluated the patient and discussed the management with Dr. Ghotra I agree with the History, Examination, Assessment and Plan documented above with any addition or exceptions noted below. Patient is improved will continue IV antibiotic and pain rx and plan AM dismissal with outpt f/u with [facility].
--- NOTE | 2019-07-26 09:25 | CON ---
DATE OF CONSULTATION: REASON FOR CONSULTATION: Left facial cellulitis. CHIEF COMPLAINT: Left facial pain. HISTORY OF PRESENT ILLNESS: This is a 48-year-old male who was admitted from the emergency room to the Family Medicine Service. The patient has a history of dental issues. He is deaf and does not speak. He has a history of hypertension and diabetes as well. He has had pain and swelling associated with his tooth for approximately 5 days. He was admitted to the Family Medicine Service for IV antibiotics. PAST MEDICAL HISTORY: Hypertension and diabetes. PAST SURGICAL HISTORY: None. SOCIAL HISTORY: The patient is a nonsmoker, nondrinker, nondrug user. He lives with his , who is his decision maker. CURRENT MEDICATIONS: Listed in the EMR. He was on a course of Augmentin prior to admission. ALLERGIES: NONE. PHYSICAL EXAMINATION: VITAL SIGNS: The patient's current vital signs upon examination are temp 98.3, pulse 66, saturating 94% on room air, respirations are 16, and blood pressure 160/96. GENERAL: He is awake, alert, and oriented x3. He is in no acute distress. HEENT: He has gross coronal decay of all teeth and most of the teeth are broken off at the gumline or decayed at the gumline. He has mild amount of tenderness in the vestibule of his left maxilla adjacent to teeth 9, 10, and 11 area. He has marked improvement upon cellulitis per the Family Medicine doctor. His oral opening is good. There is no swelling around the eye. His vision is good. CT scan of the face shows a periapical lesion, teeth #9, 10, 11; caries 9, 10, and 11, as well as other teeth as well. ASSESSMENT: A 48-year-old male, periapical abscess, tooth #9, 10, and 11, secondary to dental caries and necrotic pulp. PLAN: The patient is to be discharged to my office for extraction of teeth 9, 10, and 11 as these are the likely source of the patient's pain and cellulitis. Job ID: [id number]
[2019-07-26] MEDS: HYDROcodone/Acetaminophen 10/325 mg Tablet PO PRN ×3 (10:07→23:16)
[2019-07-26] MEDS: HumaLOG 300 UNITS/3 ML VIAL SC PRN ×2 (13:00→17:19)
[2019-07-26] MEDS: Sodium Chloride 0.9% 1,000 ML IV SCH (13:03)
[2019-07-26] MEDS: Senokot S 8.6-50 MG TAB PO PRN (17:38)
[2019-07-27] MEDS: Morphine 2 MG/ML SYRINGE SLOW IVP PRN (00:33)
[2019-07-27] MEDS: Sodium Chloride 0.9% 1,000 ML IV SCH (00:37)
[2019-07-27] MEDS: Clindamycin/D5W 900 MG in Premix Bag 1 BAG IVPB SCH (04:16)
[2019-07-27] MEDS: Piperacillin/Tazobactam 3.375 GM in Sodium Chloride 0.9% 100 ML IVPB SCH (05:12)
--- NOTE | 2019-07-27 06:29 | PDOC.FM ---
- Subjective Subjective: NAEO. Pain and redness much improved. Ready to go, no concerns, no fevers. - Objective MAR Reviewed: Yes Vital Signs & Weight: Vital Signs (12 hours) Temp Pulse Resp BP Pulse Ox 07/27/19 04:00 97.8 F 60 18 136/78 96 07/26/19 20:05 95 07/26/19 19:27 98.2 F 59 L 18 125/81 95 Weight Weight 157.567 kg I&O: 07/25/19 07/26/19 07/27/19 06:59 06:59 06:59 Intake Total 1999 170 Balance 1999 1699 Result Diagrams: 07/24/19 15:05 07/24/19 15:05 Phys Exam - Physical Examination Constitutional: NAD HEENT: PERRLA, moist MMs extensive odotogenic disease Neck: no nodes, full ROM Respiratory: no wheezing, clear to auscultation bilateral Neurological: non-focal, moves all 4 limbs Psychiatric: normal affect, A&O x 3 Skin: cap refill <2 seconds Deviation from normal: left facial cellulitis much improved, dec swelling,no ocular involvement Dx/Plan (1) Cellulitis Code(s): L03.90 - CELLULITIS, UNSPECIFIED Status: Acute (2) DM type 2 (diabetes mellitus, type 2) Status: Acute Qualifiers: Diabetes mellitus intermediate teacher insulin use: without prison use Diabetes mellitus complication status: without complication Qualified Code(s): E11.9 - Type 2 diabetes mellitus without complications (3) HTN (hypertension) Code(s): I10 - ESSENTIAL (PRIMARY) HYPERTENSION Status: Chronic Qualifiers: Hypertension type: essential hypertension Qualified Code(s): I10 - Essential (primary) hypertension - Plan Plan: 1. Cellulitis of left face from odontogenic infction- Improved, afebrile pending cultures. Clinically improved. No ocular involvement. Continue clindamycin & zosyn-will send on clinda and augmentin outpt. Pain control. d/c so can have OMFS procedure today. 2. HTN-elevated likely from pain. Continue home meds but improve pain control 3. DM2-7.4. Start metformin & statin outpt. Sliding scale. Discussed this with patient. Addendum - Attending - Attending Attestation Date/Time: 07/27/192236 I personally evaluated the patient and discussed the management with Dr. Ghotra I agree with the History, Examination, Assessment and Plan documented above.
[2019-07-27] MEDS: Enoxaparin Sodium 40 MG/0.4 ML SYRINGE SC SCH (07:38)
[2019-07-27] MEDS: DULoxetine 60 MG CAP PO SCH (07:38)
[2019-07-27] MEDS: hydrOXYzine 25 MG TAB PO SCH (07:41)
[2019-07-27] MEDS: Carvedilol 6.25 MG TAB PO SCH (07:42)
[2019-07-27] MEDS: Losartan/Hydrochlorothiazide 100 mg/25 mg Tablet PO SCH (07:42)
[2019-07-27] MEDS: Amlodipine 10 MG TAB PO SCH (07:42)
[2019-07-27] MEDS: HYDROcodone/Acetaminophen 10/325 mg Tablet PO PRN (07:46)
[2019-07-27 07:48] VITALS: BP 167/105
[2019-07-27 08:16] VITALS: TEMP 98.3
--- NOTE | 2019-07-30 14:07 | DIS ---
DATE OF ADMISSION: 07/24/2019 DATE OF DISCHARGE: 07/27/2019 ADMITTING ATTENDING: Wolf Joyner MD DISCHARGE ATTENDING: Wolf Joyner MD RESIDENT: Lashanda Ghotra, PGY-2 CONSULTS: [facility], Dr. Zac Brewer. PRIMARY DIAGNOSES: 1. Cellulitis of left face secondary from odontogenic infection spread. 2. Periapical abscesses on teeth #9, 10, and .. 3. Dental caries, necrotic pulp. SECONDARY DIAGNOSES: 1. Hypertension. 2. Type 2 diabetes. PROCEDURES AND IMAGING: Facial bone CT: Edema in the left buccal space spilling out into the adjacent left superficial fat. Evidenced left-sided acute odontogenic disease. Extensive diffuse odontogenic disease. DISCHARGE MEDICATIONS: New medications include; 1. Clindamycin 600 mg p.o. q.i.d. for 14 days. 2. Augmentin 875/125 one tab p.o. q.12 hours for 14 days. 3. Atorvastatin 40 mg p.o. daily. 4. Glucophage 500 mg p.o. b.i.d. with meals. 5. [place] 10/325 two tabs p.o. q.6 hours p.r.n. for pain. Continued medications; 1. Amlodipine 10 mg p.o. daily. 2. Cymbalta 60 mg p.o. daily. 3. Coreg 6.25 mg p.o. daily. 4. Losartan/hydrochlorothiazide 100/25 one tab p.o. daily. 5. Isosorbide mononitrate ER 30 mg p.o. daily. DISCONTINUED MEDICATIONS: None. HISTORY OF PRESENT ILLNESS/HOSPITAL COURSE: Mr. Maldonado Goodrich is a 48-year-old hearing-impaired male, who presented to the ER after failed outpatient treatment therapy for dental pain on Augmentin and Peridex. Due to worsening pain and inflammation extending up to the left paranasal maxillary area and upper on the eye, he came to the ER. He did not appear to be septic and was started on antibiotics. CT scans were negative for any type of orbital involvement or abscess formation and it showed left facial cellulitis. [facility] was consulted and after Dr. Pederson's read, he had seen periapical abscesses on teeth 9, 10, and . He recommended for tooth extraction. The patient was discharged stable with pain controlled and remained fever free with plans for outpatient [facility]FS surgery to drain the abscess with eventual hope of improving his clinical symptoms. The patient has not followed with PCP for quite some time and so was started on some routine outpatient medications for diabetes, hypertension, and dyslipidemia. He was instructed that it is important he follows up. He will be discharged on antibiotics, Augmentin and clindamycin in order to cover both staph/strep and gram-negative organisms. Can consider deescalating after procedure. Please further talk with Dr. Pederson about this. DISPOSITION: Stable. DISCHARGE INSTRUCTIONS: 1. Location: Home. 2. Diet: Carb consistent heart healthy diet. 3. Activity: Ad yesenia as tolerated. 4. Followup: a. [facility] next [facility]. b. Please continue taking antibiotics as instructed. c. Please call for any questions or if there is worsening of symptoms. d. Please follow up with Dr. Pederson today for OMFS outpatient procedure for tooth extraction. Job ID: [id number]
== END 2019-07-27 08:50 | disposition home or self-care (01) | DRG 158 ==
LOC: ERS 12:03 → T4-A 20:38
PROVIDERS: ADMIT Internal Medicine; ATTEND Internal Medicine
DX: K04.7 Periapical abscess without sinus (principal); K12.2 Cellulitis and abscess of mouth; L03.211 Cellulitis of face; I10 Essential (primary) hypertension; F32.9 Major depressive disorder, single episode, unspecified; F41.9 Anxiety disorder, unspecified; K46.9 Unspecified abdominal hernia without obstruction or gangrene; E11.9 Type 2 diabetes mellitus without complications; K02.9 Dental caries, unspecified; K04.1 Necrosis of pulp; H91.3 Deaf nonspeaking, not elsewhere classified
CPT/HCPCS: 36416; 70487; 80053; 83036; 85025; 86140; 96365; 96375; 96376; 99282; J0360; J1650; J2270; J2405; J2543; J3010; J3490; Q0162; Q9967

== ENCOUNTER 2019-08-01 23:20 | Emergency (ER) | payer MEDICARE ==
[2019-08-01] MEDS ORDERED: HYDROcodone/Acetaminophen 10/325 mg Tablet ONE (23:52)
[2019-08-02 00:07] LABS: #Eosinphils 0.2 thou/uL (0.0-0.7); #Lymphocytes 2.4 thou/uL (1.20-3.40); #Monocytes 1.6 thou/uL (0.11-0.59); #Neutrophils 9.6 thou/uL (1.40-6.50); %Basophils 0.4 % (0.0-1.0); %Eosinophils 1.1 % (0.0-10.0); %Lymphocytes 17.3 % (21.0-51.0); %Monocytes 11.3 % (0.0-10.0); %Neutrophils 69.9 % (42.0-75.0); Hemoglobin 12.5 g/dL (14.0-18.0); Mean Corpuscular HGB CONC 33.5 g/dL (32.0-36.0); Mean Corpuscular Hemoglobin 28.5 pg (27.0-31.0); Mean Corpuscular Volume 85.2 fL (78.0-98.0); Mean Platelet Volume 8.2 fL (7.4-10.4); Platelet Count 270 thou/uL (130-400); RBC Distribution Width 12.3 % (11.5-14.5); Red Blood Cell (RBC) Count 4.39 mill/uL (4.70-6.10); White Blood Cell (WBC) Count 13.7 thou/uL (4.8-10.8)
[2019-08-02 01:01] LABS: ALT (SGPT) 29 U/L (8-55); AST (SGOT) 24 U/L (5-34); Albumin 3.8 g/dL (3.5-5.0); Alkaline Phosphatase 91 U/L (40-110); Anion Gap 16 mmol/L (10-20); BUN (Urea Nitrogen) 18 mg/dL (8.9-20.6); Bilirubin, Total 0.6 mg/dL (0.2-1.2); Calc. Creatinine Clearance 0 mL/min (70-130); Calcium 9.4 mg/dL (7.8-10.44); Carbon Dioxide 26 mmol/L (22-29); Chloride 97 mmol/L (98-107); Estimated GFR-MDRD 48; Glucose 221 mg/dL (70-105); Potassium 3.7 mmol/L (3.5-5.1); Protein, Total 7.8 g/dL (6.0-8.3); Sodium 135 mmol/L (136-145)
== END 2019-08-02 00:42 | disposition home or self-care (01) ==
LOC: ERS 23:20
DX: L03.114 Cellulitis of left upper limb (principal); I10 Essential (primary) hypertension; E11.9 Type 2 diabetes mellitus without complications; F41.9 Anxiety disorder, unspecified; Z79.899 Other long term (current) drug therapy
CPT/HCPCS: 36415; 80053; 85025

== ENCOUNTER 2021-01-18 22:34 | Emergency (ER) | payer MEDICARE ==
[2021-01-18] MEDS ORDERED: Bupivacaine 0.5% 10 ML VIAL ONE (23:35)
[2021-01-18] MEDS ORDERED: Lidocaine 1% w/Epinephrine 1:100K 20 ML VIAL ONE (23:35)
[2021-01-19] MEDS ORDERED: Ibuprofen 800 MG TAB ONE (00:37)
[2021-01-19] MEDS ORDERED: Amoxicillin/Potassium Clav 875 MG TAB ONE (00:37)
== END 2021-01-19 00:51 | disposition home or self-care (01) ==
LOC: ERS 22:34
DX: K03.81 Cracked tooth (principal); K02.9 Dental caries, unspecified; I10 Essential (primary) hypertension; E11.9 Type 2 diabetes mellitus without complications; Z79.899 Other long term (current) drug therapy; Z79.84 Long term (current) use of oral hypoglycemic drugs
CPT/HCPCS: 99283; J3490

== ENCOUNTER 2025-06-10 12:47 | Emergency (ER) | payer MEDICARE, OTHER ==
[~2025-06-10 12:47] MED LIST changes: -Iopamidol 370 76% 50 ML VIAL FS ONE; +Iopamidol-370 76% 500 ML MDV (1 ML CHARGE) ONE
[2025-06-10 13:54] LABS: #Basophils 0.06 10x3/uL (0.0-0.2); #Eosinophils 0.22 10x3/uL (0.0-0.7); #Monocytes 0.58 10x3/uL (0.11-0.59); #Neutrophils 5.37 10x3/uL (1.40-6.50); %Basophils 0.7 % (0.0-1.0); %Eosinophils 2.7 % (0.0-10.0); %Lymphocytes 21.9 % (21.0-51.0); %Monocytes 7.2 % (0.0-10.0); %Neutrophils 67.0 % (42.0-75.0); Hematocrit 46.6 % (42.0-52.0); Hemoglobin 14.8 g/dL (14.0-18.0); Mean Corpuscular Hemoglobin 26.5 pg (27.0-31.0); Mean Corpuscular Volume 83.5 fL (78.0-98.0); Platelet Count 267 10x3/uL (130-400); Red Blood Cell (RBC) Count 5.58 mill/uL (4.70-6.10); White Blood Cell (WBC) Count 8.03 10x3/uL (4.8-10.8)
[2025-06-10 14:16] LABS: ALT (SGPT) 34 U/L (Less than 45); AST (SGOT) 19 U/L (11-34); Albumin 3.9 g/dL (3.1-4.5); Alkaline Phosphatase 130 U/L (40-110); Anion Gap 12 mmol/L (10-20); BUN (Urea Nitrogen) 14 mg/dL (8.4-25.7); Bilirubin, Total 0.4 mg/dL (0.3-1.2); Calc. Creatinine Clearance 0 mL/min (70-130); Calcium 9.7 mg/dL (7.8-10.44); Carbon Dioxide 28 mmol/L (22-29); Chloride 99 mmol/L (98-107); Globulin 3.9 g/dL (2.4-3.5); Glucose 461 mg/dL (70-105); Lipase 20 U/L (8-78); Potassium 4.4 mmol/L (3.5-5.1); Sodium 135 mmol/L (136-145)
[2025-06-10 14:55] LABS: Magnesium 2.1 mg/dL (1.6-2.6)
[2025-06-10 15:01] LABS: Actual Bicarbonate (HCO3v) 28.1 mEq/L (22-28); Analyzer IN Cardio ER; Base Excess 2.5 mEq/L (-2.0 to +3.0); Calcium, Ionized (venous) 1.16 mmol/L (1.16-1.32); Chloride (VBG) 98 mmol/L (98-106); Hematocrit-VBG 47 % (42.0-52.0); Hemoglobin (Hb) 16.1 g/dL (13.1-17.2); Potassium (VBG) 4.39 mmol/L (3.70-5.30); Sodium 137 mmol/L (133-146)
[2025-06-10] MEDS ORDERED: Ondansetron PF 4 MG/2 ML Vial ONE (15:21)
[2025-06-10 17:03] LABS: Bacteria/HPF None Seen HPF (None Seen); CAUTI Indications for Culture Pelvic or flank pain; Glucose, Urine (Dipstick) Greater than 1000 mg/dL (Negative); Leukocyte Negative Leu/uL (Negative); Protein, Urine (Dipstick) Negative (Neg-Trace); RBC/HPF None Seen HPF (0-3); Specific Gravity, Urine Less than 1.050 (1.002-1.036); WBC/HPF 0-3 HPF (0-3)
[2025-06-10 17:04] LABS: Urine Culture Reflex No No
== END 2025-06-10 19:05 | disposition home or self-care (01) ==
LOC: ERS 12:47
DX: K59.00 Constipation, unspecified (principal); E11.65 Type 2 diabetes mellitus with hyperglycemia; I10 Essential (primary) hypertension
CPT/HCPCS: 36415; 36416; 74177; 80053; 81001; 82010; 82805; 83605; 83690; 83735; 84484; 85025; 93005; 94760; 96361; 96372; 96374; J1815; Q9967

== ENCOUNTER 2025-06-18 11:11 | Observation (INO) | payer OTHER ==
[2025-06-18 11:59] LABS: #Basophils 0.06 10x3/uL (0.0-0.2); #Eosinophils 0.34 10x3/uL (0.0-0.7); #Monocytes 0.74 10x3/uL (0.11-0.59); #Neutrophils 5.85 10x3/uL (1.40-6.50); %Basophils 0.7 % (0.0-1.0); %Eosinophils 3.7 % (0.0-10.0); %Lymphocytes 23.4 % (21.0-51.0); %Monocytes 8.1 % (0.0-10.0); %Neutrophils 64.0 % (42.0-75.0); Hematocrit 47.2 % (42.0-52.0); Hemoglobin 15.7 g/dL (14.0-18.0); Mean Corpuscular Hemoglobin 27.3 pg (27.0-31.0); Mean Corpuscular Volume 81.9 fL (78.0-98.0); Platelet Count 291 10x3/uL (130-400); Red Blood Cell (RBC) Count 5.76 mill/uL (4.70-6.10); White Blood Cell (WBC) Count 9.14 10x3/uL (4.8-10.8)
[2025-06-18] MEDS ORDERED: Aspirin Chewable 81 MG TAB ONE (12:15)
[2025-06-18 12:18] LABS: ALT (SGPT) 28 U/L (Less than 45); AST (SGOT) 27 U/L (11-34); Albumin 4.2 g/dL (3.1-4.5); Alkaline Phosphatase 129 U/L (40-110); Anion Gap 16 mmol/L (10-20); BUN (Urea Nitrogen) 13 mg/dL (8.4-25.7); Bilirubin, Total 0.8 mg/dL (0.3-1.2); Calc. Creatinine Clearance 0 mL/min (70-130); Calcium 9.9 mg/dL (7.8-10.44); Carbon Dioxide 26 mmol/L (22-29); Chloride 93 mmol/L (98-107); Globulin 3.9 g/dL (2.4-3.5); Glucose 458 mg/dL (70-105); Potassium 3.3 mmol/L (3.5-5.1); Sodium 132 mmol/L (136-145)
[2025-06-18 12:21] LABS: INR-International Normal Ratio 1.0; Prothrombin Time 12.8 sec (12.0-14.7)
[2025-06-18 12:22] LABS: PTT 33.7 sec (22.9-36.1)
[2025-06-18] MEDS ORDERED: Acetaminophen 325 MG TAB PO PRN (15:09)
[2025-06-18] MEDS ORDERED: Glucagon 1 MG/ML KIT IM PRN (15:09)
[2025-06-18] MEDS ORDERED: Dextrose 50% Abboject 50 ML SYRINGE SLOW IVP PRN (15:09)
[2025-06-18 17:00] VITALS: BMI 42.3
[2025-06-18 17:42] LABS: Magnesium 1.9 mg/dL (1.6-2.6)
[2025-06-18 21:29] LABS: Potassium 4.6 mmol/L (3.5-5.1)
[2025-06-19 04:13] LABS: #Basophils 0.08 10x3/uL (0.0-0.2); #Eosinophils 0.31 10x3/uL (0.0-0.7); #Monocytes 0.76 10x3/uL (0.11-0.59); #Neutrophils 4.51 10x3/uL (1.40-6.50); %Basophils 1.0 % (0.0-1.0); %Eosinophils 3.8 % (0.0-10.0); %Lymphocytes 30.1 % (21.0-51.0); %Monocytes 9.3 % (0.0-10.0); %Neutrophils 55.6 % (42.0-75.0); Hematocrit 43.9 % (42.0-52.0); Hemoglobin 13.9 g/dL (14.0-18.0); Mean Corpuscular Hemoglobin 26.8 pg (27.0-31.0); Mean Corpuscular Volume 84.7 fL (78.0-98.0); Platelet Count 244 10x3/uL (130-400); Red Blood Cell (RBC) Count 5.18 mill/uL (4.70-6.10); White Blood Cell (WBC) Count 8.13 10x3/uL (4.8-10.8)
[2025-06-19 04:24] LABS: ALT (SGPT) 25 U/L (Less than 45); AST (SGOT) 17 U/L (11-34); Albumin 3.5 g/dL (3.1-4.5); Alkaline Phosphatase 97 U/L (40-110); Anion Gap 10 mmol/L (10-20); BUN (Urea Nitrogen) 15 mg/dL (8.4-25.7); Bilirubin, Total 0.6 mg/dL (0.3-1.2); Calc. Creatinine Clearance 160 mL/min (70-130); Calcium 9.3 mg/dL (7.8-10.44); Carbon Dioxide 30 mmol/L (22-29); Cardiac Risk 4.5 (Less than 4.5); Chloride 98 mmol/L (98-107); Cholesterol 138 mg/dl (< 200 Desired); Globulin 3.2 g/dL (2.4-3.5); Glucose 209 mg/dL (70-105); HDL Cholesterol 31 mg/dL (>60 Neg Risk); LDL Cholesterol, Calculated 73 mg/dL; Potassium 4.0 mmol/L (3.5-5.1); Sodium 134 mmol/L (136-145); Triglycerides 172 mg/dL (Less than 150)
[2025-06-19] MEDS ORDERED: Insulin Glargine 30 UNITS/0.3 ML VIAL SC SCH ×2 (09:00)
[2025-06-19] MEDS ORDERED: Enoxaparin 40 MG (0.4 mL) SYRINGE SC SCH (09:00)
[2025-06-19] MEDS: Aspirin Chewable 81 MG TAB PO SCH (10:06)
[2025-06-19] MEDS: metFORMIN 500 MG TAB PO SCH (10:06)
[2025-06-19] MEDS: Insulin Glargine 30 UNITS/0.3 ML VIAL SC SCH ×2 (10:07→14:20)
[2025-06-19] MEDS: Enoxaparin 40 MG (0.4 mL) SYRINGE SC SCH (10:07)
[2025-06-19 16:04] VITALS: BP 171/84; TEMP 98.2
[2025-06-21] MEDS ORDERED: PNEUMOC 20-VAL CONJ-DIP CRM/PF 0.5 ML SYRINGE IM ONE (17:30)
[2025-06-21] MEDS ORDERED: FLU (Fluarix Triv) 25-26 (6MOS UP)/PF 45 MCG/0.5 ML Syringe IM ONE (17:30)
== END 2025-06-19 18:30 | disposition home or self-care (01) ==
LOC: ERS 11:11 → 2SE 15:59
PROVIDERS: ADMIT Family Medicine; ATTEND Family Medicine
DX: R53.1 Weakness (principal); R20.0 Anesthesia of skin; E87.1 Hypo-osmolality and hyponatremia; E87.6 Hypokalemia; E78.5 Hyperlipidemia, unspecified; E03.9 Hypothyroidism, unspecified; I11.0 Hypertensive heart disease with heart failure; I50.9 Heart failure, unspecified; E11.9 Type 2 diabetes mellitus without complications; H91.8X9 Other specified hearing loss, unspecified ear; Z86.73 Personal history of transient ischemic attack (TIA), and cerebral infarction without residual deficits; Z79.899 Other long term (current) drug therapy
CPT/HCPCS: 0042T; 36415; 36416; 70450; 70496; 70498; 70551; 71045; 72141; 80053; 80061; 83036; 83735; 84443; 85025; 85610; 85730; 93005; 94760; 96360; 96372; G0378; J1650; J1815; Q9967